=== PATIENT | male | born 1995 | race Caucasian/White ===

== ENCOUNTER 2019-05-31 00:08 | Emergency (ER) | payer MEDICAID ==
[~2019-05-31] VITALS: Ht 182.9 cm; Wt 68.2 kg
[2019-05-31 00:17] VITALS: BP 123/102
[2019-05-31] MEDS ORDERED: diphenoxylate/atropine tablet (Lomotil) PO ONE (00:40)
[2019-05-31] MEDS ORDERED: ondansetron/PF 4mg/2ml inj IV ONE (00:40)
[2019-05-31] MEDS ORDERED: normal saline 1000ML IV soln IVB ONE (00:40)
[2019-05-31] MEDS ORDERED: pantoprazole 40 MG vial IV ONE (00:40)
[2019-05-31] MEDS ORDERED: ESOMEPRAZOLE 40 MG VIAL IV ONE (00:50)
[2019-05-31 01:05] LABS: EOSINOPHILS % (AUTO) 0.7 % (0-6); HEMOGLOBIN 17.1 g/dl (14.0-17.9); LYMPHOCYTES # (AUTO) 1.8 X10'3 (1.1-4.8); NEUTROPHILS # (AUTO) 3.6 X10'3 (1.8-7.7); RED BLOOD COUNT 5.55 X10'6 (4.70-6.10); WHITE BLOOD COUNT 6.5 X10'3 (4.5-11.0)
[2019-05-31 01:06] LABS: BASOPHILS % (AUTO) 0.7 % (0-1); HEMATOCRIT 49.8 % (42.0-52.0); MEAN CORPUSCULAR HEMOGLOBIN 30.8 PG (27.0-31.0); MEAN CORPUSCULAR HGB CONC 34.3 g/dL (33.0-36.5); MEAN CORPUSCULAR VOLUME 89.7 FL (78-98); MONOCYTES % (AUTO) 15.5 % (2-12); NEUTROPHILS % (AUTO) 55.1 % (42-75); PLATELET COUNT 244 X10'3 (140-440); RED CELL DISTRIBUTION WIDTH 12.5 % (11.5-14.5)
[2019-05-31 01:11] LABS: ALBUMIN 4.6 G/DL (3.4-5.0); ALBUMIN/GLOBULIN RATIO 1.3 (1.1-1.5); ANION GAP 11 (8-16); ASPARTATE AMINO TRANSFERASE 11 U/L (10-37); BILIRUBIN,TOTAL 0.6 MG/DL (0.1-1.0); BLOOD UREA NITROGEN 15 MG/DL (7-18); BUN/CREATININE RATIO 15.2 (5.4-32.0); CALCIUM 9.9 MG/DL (8.5-10.1); CHLORIDE 106 MMOL/L (99-107); CREATININE 0.99 MG/DL (0.60-1.10); GLUCOSE 87 MG/DL (70-104); POTASSIUM 3.7 MMOL/L (3.5-5.1); SODIUM 142 MMOL/L (135-145); TOTAL CARBON DIOXIDE 24.8 MMOL/L (24-32); TOTAL PROTEIN 8.2 G/DL (6.4-8.2); eGFR > 90 ML/MIN
[2019-05-31 01:12] LABS: ALANINE AMINOTRANSFERASE 21 U/L (12-78); ALKALINE PHOSPHATASE 97 IU/L (46-116); LIPASE 104 U/L (73-393)
[2019-05-31] MEDS ORDERED: PANT-47 PO (01:26)
[2019-05-31] MEDS ORDERED: ONDA8TAB13 PO (01:26)
[2019-05-31 01:36] LABS: PLATELET ESTIMATE NORMAL; TOTAL CELLS COUNTED 100
== END 2019-05-31 01:45 | disposition home or self-care (01) ==
LOC: ER 00:10
DX: K52.9 Noninfective gastroenteritis and colitis, unspecified (principal); R10.10 Upper abdominal pain, unspecified; Z79.899 Other long term (current) drug therapy
CPT/HCPCS: 36415; 71045; 80053; 83690; 85025; 96374; 96375; 99284; J2405; J7030